=== PATIENT | male | born 1965 | race Caucasian/White ===

== ENCOUNTER 2019-11-19 19:31 | Emergency (ER) | payer MEDICAID ==
[~2019-11-19] VITALS: Ht 172.7 cm; Wt 61.4 kg
[~2019-11-19 19:31] MED LIST: CEPH-419 PO; NO HOME MEDS
[2019-11-19] MEDS ORDERED: acetaminophen 325mg tablet PO ONE (22:10)
[2019-11-19] MEDS ORDERED: ibuprofen tablet 400 MG TABLET PO ONE (22:10)
[2019-11-19 22:37] VITALS: BP 142/95
== END 2019-11-19 22:38 | disposition home or self-care (01) ==
LOC: ER 19:32
DX: M79.675 Pain in left toe(s) (principal); Z59.0 Homelessness; Z79.899 Other long term (current) drug therapy
CPT/HCPCS: 73630; 99283

== ENCOUNTER 2020-10-14 23:09 | Emergency (ER) | payer MEDICAID ==
[~2020-10-14] VITALS: Ht 170.2 cm; Wt 60.0 kg
[2020-10-14 23:24] VITALS: BP 117/91
[2020-10-15] MEDS ORDERED: HYDROcodone/acetaminophen 5mg/325mg tablet PO ONE (00:55)
[2020-10-15] MEDS ORDERED: HYDR-3965 PO (00:55)
== END 2020-10-15 03:33 | disposition home or self-care (01) ==
LOC: ER 23:10
DX: S52.614A Nondisplaced fracture of right ulna styloid process, initial encounter for closed fracture (principal); S52.501A Unspecified fracture of the lower end of right radius, initial encounter for closed fracture; M79.601 Pain in right arm; Z59.0 Homelessness; Z79.2 Long term (current) use of antibiotics; V87.7XXA Person injured in collision between other specified motor vehicles (traffic), initial encounter; Y93.89 Activity, other specified; Y92.89 Other specified places as the place of occurrence of the external cause; Y99.8 Other external cause status
CPT/HCPCS: 29125; 73090; 73110; 99284

== ENCOUNTER 2023-03-03 09:32 | Emergency (ER) | payer MEDICAID ==
[~2023-03-03] VITALS: Ht 170.2 cm; Wt 56.5 kg
[2023-03-03 09:45] VITALS: BP 119/77; PULSE 73; TEMP 97.6; O2SAT 97
[2023-03-03 10:13] VITALS: RESP 18
--- NOTE | 2023-03-03 11:02 | NUR ---
SENIOR CLINICAL RESEARCH SCIENTIST ASSESSMENT REVIEWED BY CARINA RN; APPROVED
== END 2023-03-03 12:33 | disposition home or self-care (01) ==
LOC: ER 09:32
DX: S62.112A Displaced fracture of triquetrum [cuneiform] bone, left wrist, initial encounter for closed fracture (principal); Z79.2 Long term (current) use of antibiotics; X58.XXXA Exposure to other specified factors, initial encounter; Y93.89 Activity, other specified; Y92.89 Other specified places as the place of occurrence of the external cause; Y99.8 Other external cause status
CPT/HCPCS: 29125; 73110; 99284; A6449

== ENCOUNTER 2023-03-10 15:01 | Emergency (ER) | payer MEDICAID ==
[~2023-03-10] VITALS: Ht 172.7 cm; Wt 53.6 kg
[2023-03-10 15:32] VITALS: BP 139/93; PULSE 93; RESP 18; O2SAT 98
[2023-03-10 17:33] VITALS: TEMP 98
== END 2023-03-10 17:35 | disposition home or self-care (01) ==
LOC: ER 15:01
DX: S62.112A Displaced fracture of triquetrum [cuneiform] bone, left wrist, initial encounter for closed fracture (principal); Z79.2 Long term (current) use of antibiotics; X58.XXXA Exposure to other specified factors, initial encounter; Y93.89 Activity, other specified; Y92.89 Other specified places as the place of occurrence of the external cause; Y99.8 Other external cause status
CPT/HCPCS: 29125; 99283; A4565; A6446; A6449

== ENCOUNTER 2023-06-18 12:57 | Emergency (ER) | payer MEDICAID ==
[~2023-06-18] VITALS: Ht 172.7 cm; Wt 58.0 kg
[2023-06-18 13:05] VITALS: BP 120/73; PULSE 85; RESP 16; TEMP 98; O2SAT 97
== END 2023-06-18 14:37 | disposition home or self-care (01) ==
LOC: ER 12:57
DX: S52.511A Displaced fracture of right radial styloid process, initial encounter for closed fracture (principal); S52.611A Displaced fracture of right ulna styloid process, initial encounter for closed fracture; Z79.2 Long term (current) use of antibiotics; W19.XXXA Unspecified fall, initial encounter; Y93.89 Activity, other specified; Y92.89 Other specified places as the place of occurrence of the external cause; Y99.8 Other external cause status
CPT/HCPCS: 29125; 73110; 99284

== ENCOUNTER 2023-07-25 12:39 | Emergency (ER) | payer MEDICAID ==
[~2023-07-25] VITALS: Ht 172.7 cm; Wt 57.8 kg
[2023-07-25 14:51] VITALS: BP 121/82; PULSE 66; RESP 18; TEMP 97.7; O2SAT 100
== END 2023-07-25 14:54 | disposition home or self-care (01) ==
LOC: ER 12:39
DX: S63.91XA Sprain of unspecified part of right wrist and hand, initial encounter (principal); Z79.2 Long term (current) use of antibiotics; X58.XXXA Exposure to other specified factors, initial encounter; Y93.89 Activity, other specified; Y92.89 Other specified places as the place of occurrence of the external cause; Y99.8 Other external cause status
CPT/HCPCS: 73130; 99283

== ENCOUNTER 2024-09-22 15:14 | Emergency (ER) | payer MEDICAID ==
[~2024-09-22] VITALS: Ht 170.2 cm; Wt 61.4 kg
[2024-09-22 15:15] VITALS: PULSE 77; TEMP 98.4
[2024-09-22] MEDS ORDERED: SULF1TAB49 PO (16:13)
--- NOTE | 2024-09-22 16:13 | Physician Documentation ---
History of Present Illness ~ Chief Complaint: Wound Stated Complaint: L FOOT PAIN/LAC Time Seen by MD: 15:43 Primary Medical Doctor: NONE HPI This is a 58-year-old male who presents with a puncture wound to his last anterior edward, patient reports that three days ago he was poked with a bamboo stick in the area and is concerned for infection. Patient reports no fevers and reports no other acute symptoms or concerns. 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 Physical Exam Vital Signs: Temperature: 98.4, Source: Oral, Heart Rate: 77, Respiratory Rate: 18, BP: 122/79, Pulse Oximetry: 97, Weight: 61.360 Physical Exam VITALS: Reviewed and as above. GENERAL: Alert, nontoxic appearing, no apparent distress. RESPIRATORY: No increased work of breathing, no respiratory distress, speaking in full clear sentences SKIN: Approximately 1 cm puncture wound to left anterior edward without bleeding, no surrounding erythema, minimal surrounding tenderness and swelling, no induration, no fluctuance Progress Results/Orders Results/Orders Orders - ALEXANDRA STOCK Tib/Fib (09/22/24 16:00) Wound Care Orders (09/22/24 16:00) Sulfamethox/Trimetho. Ds Tab (Septra Ds (09/22/24 16:00) Completed Orders - ALEXANDRA STOCK Tib/Fib (09/22/24 16:00) Tetanus/Pertuss/Diph Acell/Pf (Boostrix (09/22/24 16:00) Ibuprofen Tablet (Motrin Tablet) (09/22/24 16:00) Medications Received in ER Medications (Trade) Dose Ordered Sig/Melvin Route PRN Reason Start Time Stop Time Status Last Admin Dose Admin (Boostrix vaccine syringe) 0.5 ml ONCE ONCE IMVAC 6/12/25 16:00 09/22/24 16:04 DC 09/22/24 16:25 0.5 ML (Septra DS tab) 1 tab ONCE ONCE PO 09/22/24 16:00 09/22/24 16:04 DC 09/22/24 16:24 1 TAB (Motrin tablet) 400 mg ONCE ONCE PO 09/22/24 16:00 09/22/24 16:04 DC 09/22/24 16:24 400 MG Vital Signs 09/22/24 09/22/24 15:15 16:39 Temp 98.4 Pulse 77 Resp 18 14 B/P (MAP) 122/79 165/78 Pulse Ox 97 99 EKG/XRAY/CT/US/VASC/MRI Bone/Soft Tissue X-Ray (Ext.) : Additional Comment EXAM: DI TIB/FIB 2 VWS CLINICAL HISTORY: Puncture Wound COMPARISON: None TECHNIQUE: DI TIB/FIB 2 VWS Findings/Impression: 2 views of the left tibia and fibula. There is no evidence of an acute fracture, dislocation, blastic, or lytic lesions. No radiopaque foreign bodies. No superficial soft tissue abnormalities. Electronically Signed by:DORIS DUPONT DO Date & Time: 09/22/241626 Dictated by: DORIS DUPONT DO Dictation date and time: 09/22/241626 I have reviewed and agree with the radiology report. I have reviewed and interpreted the imaging as: No fracture or dislocation, no radiopaque foreign bodies Ultrasound : Interpreted By: self Ultrasound of: other (Soft tissue of left to your edward) Impression A point of care ultrasound was performed by myself on the affected wound with no evidence of retained foreign body observed on ultrasound Medical Decision Making Findings This 58-year-old male presented with a puncture wound to his left anterior edward from a piece of wood, exam did not demonstrate evidence of abscess, cellulitis, or significant wound infection, an x-ray was obtained and did not demonstrate evidence of retained radiopaque foreign body and a point of care ultrasound was performed by myself which did not demonstrate evidence of retained foreign body ache. The wound was thoroughly irrigated by nursing staff and patient started on course of antibiotics, Tdap updated. Wound has been open for three days therefore not amenable to repair though reassuring that wound is relatively well approximated. Dressing placed by nursing. Patient is otherwise well-appearing with remainder of physical exam benign, hemodynamically stable and appropriate for outpatient follow up. Patient is provided home care instructions, return to care precautions and follow up instructions which he verbalized understanding of. Differential Dx:Considerations: Include: Abscess, Cellulitis, Other (Retained foreign body) Departure Disposition: HOME / SELF CARE / HOMELESS Impression: Primary Impression: Puncture wound Condition: Improved Discharge Instructions: Puncture Wound, [id number] Additional Instructions: Please take the antibiotics as prescribed, keep the area clean dry and covered. Change dressings at least once a day or whenever they become soiled. Please follow up with your primary care provider or the [facility] in the next few days. Please return to the emergency department for any new or worsening concerning symptoms. Referrals: NO PRIMARY CARE PROVIDER (PCP) Prescriptions Sulfamethoxazole/Trimethoprim (Bactrim Ds Tablet) 800 Mg-160 Mg Tablet 1 TAB PO Q12H for 5 Days, #10 TAB Prov: ALEXANDRA STOCK 09/22/24 Education Educated: Patient Educated regarding: diagnosis, treatment, prognosis, need for follow up Signature Scribe Signature: No scribe Attestation: The note accurately reflects work and decisions made by me.LUZ Peter 09/22/24 22:32 ALEXANDRA STOCK Sep 22, 2024 16:13
[2024-09-22] MEDS: ibuprofen tablet 400 MG TABLET PO ONE (16:24)
[2024-09-22] MEDS: sulfamethoxazole/trimethoprim DS (800/160mg) tablet PO ONE (16:24)
[2024-09-22] MEDS: TETanus/Pertussis (Acell)/Diphther VAC/PF (Tdap-Adult) 0.5ml syringe IMVAC ONE (16:25)
--- NOTE | 2024-09-22 16:30 | RADIOLOGY REPORT ---
EXAM: DI TIB/FIB 2 VWS CLINICAL HISTORY: Puncture Wound COMPARISON: None TECHNIQUE: DI TIB/FIB 2 VWS Findings/Impression: 2 views of the left tibia and fibula. There is no evidence of an acute fracture, dislocation, blastic, or lytic lesions. No radiopaque foreign bodies. No superficial soft tissue abnormalities.
[2024-09-22 16:39] VITALS: BP 165/78; RESP 14; O2SAT 99
== END 2024-09-22 16:41 | disposition home or self-care (01) ==
LOC: ER 15:15
DX: S81.832A Puncture wound without foreign body, left lower leg, initial encounter (principal); Z79.899 Other long term (current) drug therapy; Z59.00 Homelessness unspecified; W22.8XXA Striking against or struck by other objects, initial encounter; Y93.89 Activity, other specified; Y92.89 Other specified places as the place of occurrence of the external cause; Y99.8 Other external cause status
CPT/HCPCS: 73590; 90471; 90715; 99284; A6449